=== PATIENT | female | born 1955 | race Caucasian/White ===

== ENCOUNTER 2023-07-31 09:27 | Inpatient (IN) ==
[2023-07-31] MEDS ORDERED: ONDANSETRON INJ 2 MG/ML 2 ML VIAL IV STA (09:59)
[2023-07-31] MEDS ORDERED: MoRPHine SULFATE 4 MG/ML 1 ML CARP\\VIAL IV STA ×2 (09:59→12:11)
[2023-07-31] MEDS ORDERED: SODIUM CHLORIDE 0.9% 500 ML IV STA (09:59)
--- NOTE | 2023-07-31 10:02 | Emergency Department Note ---
Impression & Plan Osteoarthritis ADMIT ED Provider Note HPI: History obtained from patient. The patient is a 68-year-old female who presents emergency department with acute on chronic right hip pain. Patient states she has a history of osteoarthritis, she is currently in the midst of an outpatient evaluation with Dr. Singh of orthopedics to determine whether or not she should have her hip replaced. Patient states that she actually had an upcoming appointment today with orthopedics however she developed acute worsening of her pain since this past Saturday. Patient denies any traumatic injuries but states that she is getting to the point where she is having difficulty ambulating and almost fell today getting out of the shower because of the pain in her right hip. Patient states at times the pain radiates down her right leg. She is now having pain even at rest without moving the hip. On arrival here to the ED the patient is hypertensive at 144/90 but otherwise hemodynamically stable, she is in no acute distress on my initial assessment. ROS: - Per HPI Differential Diagnosis: Right hip fracture, end-stage osteoarthritis of the right hip, right hip dislocation, amongst other potential pathologies. *Outpatient medications and allergy history reviewed. *Pertinent external medical records reviewed PE: General: Alert HEENT: Normocephalic, trachea midline Eyes: Extraocular eye movement is intact, no scleral erythema Pulmonary: Clear to auscultation bilaterally, no wheezing Cardio: Regular rate and rhythm GI: Abdomen is soft to palpation : No suprapubic tenderness MSK: No evidence of trauma or malformation of the extremities, no edema, there is a palpable dorsalis pedis pulse in the right lower extremity, there is limited flexion at the right hip secondary to pain Skin: No evidence of rash Neuro: Alert, no focal deficits Psychiatric: Cooperative Interventions provided in ED: -IV morphine, IV Zofran, IV fluid bolus Medical Decision Making: Patient presented to the emergency department with acutely worsening right hip pain in the setting of chronic right hip pain secondary to osteoarthritis. Patient was scheduled to see Dr. Singh of orthopedics for this issue today. IV was established and lab work obtained here in the ED, patient was given IV morphine for pain. Lab work is largely unremarkable, x-ray imaging of the right hip shows evidence of severe osteoarthritis without acute fracture. On reassessment patient states her pain is improved but she does not want to go home secondary to ambulatory dysfunction and pain. I did discuss the patient's presentation with Dr. Singh, he states that he was going to evaluate the patient for elective repair/replacement of her right hip but given her acute symptom worsening he would be in agreement to admit the patient for definitive care/operative intervention. I did initially discuss the case with the on-call hospitalist, Dr. Alicia, and following his discussion with orthopedics the orthopedic service will admit the patient primarily. Patient is in agreement to this plan and the patient was admitted in stable condition. Consultants/Discussions held with other healthcare providers: -Orthopedics, Dr. Singh Disposition discussion held by myself with: -Patient and family member at bedside Diagnosis: 1. Right hip pain, acute on chronic 2. Osteoarthritis of the right hip, severe 3. Ambulatory dysfunction, acute Disposition: Admission Rene Mak DO Emergency Medicine Past Med/Surg History Medical History Anxiety GERD (gastroesophageal reflux disease) History of breast cancer ~2009; surgical intervention with radiation. History of COVID-19 Spring 2021 - suspected at the time. patient then developed mono and ebstein dobbs virus. prolonged fatigue, weakness, cough for several months. no current issues Hyperlipidemia Osteopenia Vulvar intraepithelial neoplasia (LORA) grade 3 ~ - surgery only. Surgical History H/O foot surgery plantar fasciitis repair History of appendectomy History of bilateral tubal ligation History of x2 History of carpal tunnel release right History of cataract surgery History of colonoscopy History of esophagogastroduodenoscopy (EGD) History of total knee replacement right S/P breast lumpectomy Left x2 (benign x1; left breast cancer diagnosed ~2009) with lymph node removal Right x1 (benign) S/P epidural steroid injection S/P lumbar fusion Status post surgery removal of the cancer from vulva Family History Father No problems noted. Aunt Breast cancer paternal Family/Other Breast cancer maternal cousins Brother Lung cancer Sister Lung cancer Uncle Lung cancer maternal x 3 Aunt Lung cancer maternal Other Diabetes No family history of adverse response to anesthesia Denies family history of Ovarian cancer Prostate cancer Myocardial infarction Colorectal cancer Social History Smoking Status: Former smoker Second Hand Exposure: No; Do You Dip or Chew Tobacco: No; Hx Alcohol Use: Yes Alcohol type: wine Hx Substance Use: No Preferred Language: Slovak Communication Ability: Effective Boiler Technician Required: No Beliefs That Will Affect Care: None marital status: Single marital status details: daughter and 2 small children live with her Current Living Situation: Family Current Living Situation Comment: lives with daughter and grandchildren current occupational status: employed Feels Safe at Home: Yes Diet: regular caffeine: Yes Physical Activity Frequency: 1-2 Times per Week Seatbelt Use: always Assistive Devices: Cane and Glasses Allergies Allergies Allergy/AdvReac Type Severity Reaction Status Date / Time amoxicillin [From Augmentin] Allergy Intermediate Hives Verified 07/31/23 12:03 clavulanic acid Allergy Intermediate Hives Verified 07/31/23 12:03 [From Augmentin] naproxen Allergy Intermediate Rash Verified 07/31/23 12:03 Penicillins Allergy Intermediate Hives Verified 07/31/23 12:03 hydromorphone [From Dilaudid] Allergy Unknown Unknown Verified 07/31/23 12:03 Home Meds Home Medications Medication Instructions Recorded Confirmed acidophilus 100 million 1 cap PO HS 06/25/23 07/31/23 cell-pectin, citrus 10 mg capsule atorvastatin 20 mg tablet 20 mg PO HS 06/25/23 07/31/23 azelastine 137 mcg (0.1 %) nasal 2 spray intranasal DAILY 06/25/23 07/31/23 spray aerosol bimatoprost 0.01 % eye drops 1 drp ophthalmic (eye) DAILY 06/25/23 07/31/23 (Yong) calcium 167 mg-vitamin D3 1.67 1 cap PO HS 06/25/23 07/31/23 mcg-magnesium 83 mg capsule ipratropium bromide 21 mcg (0.03 2 spray intranasal DAILY 06/25/23 07/31/23 %) nasal spray latanoprost 0.005 % eye drops 1 drp ophthalmic (eye) HS 06/25/23 07/31/23 [id number] 8 mg-folic 400 1 tab PO QAM 06/25/23 07/31/23 mcg-K 50 mcg-lutein 300 mcg tablet (Centrum Silver Women) omeprazole 20 mg capsule,delayed 20 mg PO DAILY PRN Acid Reflux 06/25/23 07/31/23 release paroxetine HCl 10 mg tablet 10 mg PO QAM 06/25/23 07/31/23 vit C 250 mg-vit E 90 mg-zinc 40 1 tab PO BID 06/25/23 07/31/23 mg-copper 1 [id number]-hatrzl capsule (PreserVision AREDS-2) cholecalciferol (vitamin D3) 125 125 mcg PO DAILY 07/31/23 07/31/23 mcg (5,000 unit) tablet (Vitamin D3) ketorolac 0.5 % eye drops 1 drp OPB QID 07/31/23 07/31/23 prednisolone acetate 1 % eye 1 drp OPR DAILY 07/31/23 07/31/23 drops,suspension Previous Rx's Medication Instructions Recorded methocarbamol 750 mg tablet 750 mg PO TID PRN muscle spasm #30 06/28/23 tabs meloxicam 15 mg tablet 15 mg PO QAM PRN Pain #90 tabs 07/25/23 Results & Data (ED) Vital Signs Vital Signs - 24 hr 07/31/23 09:31 07/31/23 10:20 07/31/23 10:20 Temperature 36.6 C 36.5 C Temperature Source Temporal Artery Scan Oral Pulse Rate 91 H 88 Pulse Rate [Right Finger] 80 Pulse Rhythm Regular Pulse Rhythm [Right Finger] Regular Pulse Strength [Right Finger] Normal Respiratory Rate 17 18 16 Respiratory Effort / Characteristics Non-Labored Spontaneous Non-Labored Spontaneous Respiratory Depth Normal Normal Respiratory Pattern Regular Blood Pressure 144/90 H Blood Pressure [Right Arm] 168/90 H Blood Pressure Mean 108 Blood Pressure Mean [Right Arm] 116 Blood Pressure Position Sitting Blood Pressure Position [Right Arm] Semi-fowlers Pulse Oximetry 98 98 98 Oxygen Delivery Method Room Air Room Air Room Air Sepsis Recent Fever Within 48 Hours No Sepsis New/Unexplained Change in Mental Status No Sepsis Action Taken by Nursing No Action Required 07/31/23 12:21 07/31/23 14:00 Temperature 36.5 C 36.5 C Temperature Source Oral Oral Pulse Rate Pulse Rate [Right Finger] 80 80 Pulse Rhythm Pulse Rhythm [Right Finger] Regular Regular Pulse Strength [Right Finger] Normal Normal Respiratory Rate 16 16 Respiratory Effort / Characteristics Non-Labored Spontaneous Non-Labored Spontaneous Respiratory Depth Normal Normal Respiratory Pattern Regular Regular Blood Pressure Blood Pressure [Right Arm] 169/92 H 152/85 H Blood Pressure Mean Blood Pressure Mean [Right Arm] 117 107 Blood Pressure Position Blood Pressure Position [Right Arm] Semi-fowlers Semi-fowlers Pulse Oximetry 98 98 Oxygen Delivery Method Room Air Room Air Sepsis Recent Fever Within 48 Hours Sepsis New/Unexplained Change in Mental Status Sepsis Action Taken by Nursing Laboratory Data 07/31/23 10:25 07/31/23 10:25 Lab Results 07/31/23 Range/Units 10:25 WBC 8.35 (4.8-10.8) K/ul RBC 4.40 (4.20-5.40) M/uL Hgb 14.0 (12.0-16.0) g/dl Hct 40.9 (37.0-47.0) % MCV 93.0 (80.0-100.0) fL MCH 31.8 (25.0-34.0) pg MCHC 34.2 (32.0-36.0) g/dL RDW Std Deviation 45.7 (36.4-46.3) fL RDW Coeff of Edilberto 13.4 (11.5-14.5) % Plt Count 323 (130-400) K/uL MPV 8.7 L (9.4-12.4) fL Immature Gran % (Auto) 0.4 % Neut % (Auto) 67.3 % Lymph % (Auto) 23.0 % [place] % (Auto) 7.8 % Eos % (Auto) 1.0 % Baso % (Auto) 0.5 % Neut # (Auto) 5.63 (1.40-6.50) K/uL Lymph # (Auto) 1.92 (1.20-3.40) K/uL [place] # (Auto) 0.65 H (0.11-0.59) K/uL Eos # (Auto) 0.08 (0.00-0.50) K/uL Baso # (Auto) 0.04 (0.00-0.20) K/uL Immature Gran # (Auto) 0.03 (0.01-0.20) K/uL PT 10.2 (9.0-12.0) Seconds INR 0.9 (0.9-1.1) Sodium 135 L (136-145) mmol/L Potassium 4.1 (3.5-5.1) mmol/L Chloride 99 (98-107) mmol/L Carbon Dioxide 27 (21-32) mmol/L Anion Gap 9 (3-11) BUN 16 (6-23) mg/dl Creatinine 0.80 (0.6-1.2) mg/dl Est Cr Clr Drug Dosing 62.8 ml/min Est GFR ( Amer) 89.0 ml/min Est GFR (Non-Af Amer) 76.8 ml/min BUN/Creatinine Ratio 20.0 (10-20) Glucose 90 (70-99(Fasting)) mg/dl Calcium 10.4 H (8.6-10.3) mg/dl Total Bilirubin 0.6 (0.2-1.0) mg/dl AST 22 (13-39) U/L ALT 24 (7-52) U/L Alkaline Phosphatase 121 H (34-104) U/L Total Protein 7.8 (6.0-8.3) gm/dl Albumin 4.8 (3.4-5.0) gm/dl Globulin 3.0 (2.5-4.0) gm/dl Albumin/Globulin Ratio 1.6 (0.9-2) Administered Medications Discontinued Medications Sodium Chloride (Nss) 500 mls @ 999 mls/hr IV .Q31M STA Stop: 07/31/23 10:29 Last Infusion: 07/31/23 11:52 Dose: Infused Documented By: Admin: 07/31/23 10:26 Dose: 999 mls/hr Documented By: ALFREDO Morphine Sulfate (Morphine Sulfate 4 Mg/Ml 1 Ml Carp\Vial) 4 mg IV NOW STA Stop: 07/31/23 10:00 Last Admin: 07/31/23 10:26 Dose: 4 mg Documented By: ALFREDO Morphine Sulfate (Morphine Sulfate 4 Mg/Ml 1 Ml Carp\Vial) 4 mg IV NOW STA Stop: 07/31/23 12:12 Last Admin: 07/31/23 12:19 Dose: 4 mg Documented By: RICHARW Ondansetron HCl (Ondansetron Inj 2 Mg/Ml 2 Ml Vial) 4 mg IV NOW STA Stop: 07/31/23 10:00 Last Admin: 07/31/23 10:26 Dose: 4 mg Documented By: ALFREDO Imaging Data Radiologist's Impression: Hip X-Ray 07/31/23 09:55 XR hip RT min 2V HISTORY: 68 years-old Female pain, hx OA, no trauma chronic right-sided hip pain COMPARISON: Hip radiographs 05/24/2022, lumbar spine radiographs 06/27/2023. TECHNIQUE: 2 views of the right hip FINDINGS: Severe joint space narrowing of the right femoral acetabular joint is again noted with superior articular collapse and articular flattening. Chronic remodeling changes with sclerosis. Demineralized appearance of the bones. Moderate degeneration of the pubic symphysis. Pelvic basin calcifications are likely vascular. Chronic degenerative and postoperative changes of the lumbar spine again noted. IMPRESSION: 1. Severe joint space narrowing of the right femoral acetabular joint with femoral head articular collapse, flattening and sclerosis which is new/significantly progressed compared to 05/24/2022. 2. No acute fracture identified. ACT 112: Negative or not required by law. The above report was generated using voice recognition software. It may contain grammatical, syntax or spelling errors. Electronically signed by: Geoff Moreno M.D. 07/31/2023 11:52 AM Discharge Plan Visit Data Chief Complaint: Hip Pain Stated Complaint: R HIP PAIN, ED Provider: Rene Mak Discharge Problem: Osteoarthritis Forms Stand Alone Forms: [employer] Prescriptions Prescriptions: No Action methocarbamol 750 mg tablet 750 mg PO TID PRN (Reason: muscle spasm) Qty: 30 1RF meloxicam 15 mg tablet 15 mg PO QAM PRN (Reason: Pain) Qty: 90 3RF ketorolac 0.5 % drops 1 drp OPB QID prednisolone acetate 1 % drops,suspension 1 drp OPR DAILY cholecalciferol (vitamin D3) [Vitamin D3] 125 mcg (5,000 unit) Tablet 125 mcg PO DAILY paroxetine HCl 10 mg tablet 10 mg PO QAM atorvastatin 20 mg tablet 20 mg PO HS azelastine 137 mcg (0.1 %) aerosol,spray 2 spray intranasal DAILY ipratropium bromide 21 mcg (0.03 %) spray,non-aerosol 2 spray intranasal DAILY Rx Instructions: administer into each nostril Centrum Silver Women 8 mg iron-400 mcg-50 mcg Tablet 1 tab PO QAM acidophilus-pectin, citrus 100 million cell-10 mg Capsule 1 cap PO HS PreserVision AREDS-2 250-90-40-1 mg Capsule 1 tab PO BID calcium 26-vit D3-magnesium 15 167 mg calcium- 1.67 mcg-83 mg Capsule 1 cap PO HS omeprazole 20 mg Capsule,Delayed Release(Dr/Ec) 20 mg PO DAILY PRN (Reason: Acid Reflux) latanoprost 0.005 % Drops 1 drp OPHTHALMIC (EYE) HS Lumigan 0.01 % Drops 1 drp OPHTHALMIC (EYE) DAILY Referrals Referrals: Dea Reesndez MD [Primary Care Provider] - Discharge Problem: Osteoarthritis Qualifiers: Osteoarthritis location: hip Osteoarthritis type: unspecified Laterality: right Qualified Code(s): M16.11 - Unilateral primary osteoarthritis, right hip
[2023-07-31 10:46] LABS: Basophils # (auto) 0.04 K/uL (0.00-0.20); Basophils % (auto) 0.5 %; Eosinophils # (auto) 0.08 K/uL (0.00-0.50); Hematocrit (blood only) 40.9 % (37.0-47.0); Immature Granulocytes # (auto) 0.03 K/uL (0.01-0.20); Immature Granulocytes % (auto) 0.4 %; Lymphocytes # (auto) 1.92 K/uL (1.20-3.40); Mean Corpuscular Hemoglobin 31.8 pg (25.0-34.0); Mean Corpuscular Hgb Conc 34.2 g/dL (32.0-36.0); Mean Platelet Volume 8.7 fL (9.4-12.4); Monocytes # (auto) 0.65 K/uL (0.11-0.59); Monocytes % (auto) 7.8 %; Neutrophils # (auto) 5.63 K/uL (1.40-6.50); Neutrophils % (auto) 67.3 %; Platelet Count 323 K/uL (130-400); RDW Coefficient of Variation 13.4 % (11.5-14.5); RDW Standard Deviation 45.7 fL (36.4-46.3); White Blood Count 8.35 K/ul (4.8-10.8)
[2023-07-31 11:03] LABS: Albumin Level 4.8 gm/dl (3.4-5.0); Bilirubin,Total 0.6 mg/dl (0.2-1.0); Calcium 10.4 mg/dl (8.6-10.3); Potassium 4.1 mmol/L (3.5-5.1)
[2023-07-31 11:09] LABS: Albumin Globulin Ratio 1.6 (0.9-2); Creatinine Clr Calc Pharmacy 62.8 ml/min; Est GFR (Non-African American) 76.8 ml/min; INR 0.9 (0.9-1.1); Prothrombin Time 10.2 Seconds (9.0-12.0); Total Protein 7.8 gm/dl (6.0-8.3)
--- NOTE | 2023-07-31 11:54 | XRay Report ---
XR hip RT min 2V HISTORY: 68 years-old Female pain, hx OA, no trauma chronic right-sided hip pain COMPARISON: Hip radiographs 05/24/2022, lumbar spine radiographs 06/27/2023. TECHNIQUE: 2 views of the right hip FINDINGS: Severe joint space narrowing of the right femoral acetabular joint is again noted with superior artic ular collapse and articular flattening. Chronic remodeling changes with sclerosis. Demineralized appe arance of the bones. Moderate degeneration of the pubic symphysis. Pelvic basin calcifications are li jackson vascular. Chronic degenerative and postoperative changes of the lumbar spine again noted. IMPRESSION: 1. Severe joint space narrowing of the right femoral acetabular joint with femoral head articular col lapse, flattening and sclerosis which is new/significantly progressed compared to 05/24/2022. 2. No acute fracture identified. ACT 112: Negative or not required by law. The above report was generated using voice recognition software. It may contain grammatical, syntax o r spelling errors. Electronically signed by: Geoff Moreno M.D. 07/31/2023 11:52 AM
--- NOTE | 2023-07-31 13:59 | History & Physical Report ---
Date of Service July 31, 2023 Assessment & Plan (1) Osteoarthritis of right hip: At this point, the patient is a good candidate for total hip arthroplasty. Patient was discussed with Dr. Singh in which he would like to proceed with anterior total hip arthroplasty on Saturday. We will admit the patient for pain control until we can operate on Saturday. The risk, benefits, and alternatives to right total hip arthroplasty was discussed and is entirely with the patient. She verbalized understanding and wishes to proceed with total hip arthroplasty to the right hip. Postoperative expectations were discussed with the patient its entirety. All questions were answered to the patient's satisfaction. She will be n.p.o. after midnight on for the anticipated surgical intervention on Saturday. History of Present Illness Chief Complaint: . Right Hip Pain Primary Care Provider: Dea Resendez MD . Amee is a 68-year-old female who presented to the emergency department today for right hip pain. She is a known patient of Dr. 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 She noted that today, she was stepping out of the shower when she felt a"popping" sensation to the right hip. She was at severe 10 out of 10 pain at that point and she feared that she may have fractured her hip. She then reported to the emergency department where an x-ray was completed which showed no acute fractures. At this time, she notes that her pain is a constant 6 out of 10 but is a 10 out of 10 with ambulation. At this point, she has a lot of difficulty with ambulation. She denies any low back pain, distal extremity pain, numbness/tingling, or paresthesias. She is not on any anticoagulation. Allergies Allergy/AdvReac Type Severity Reaction Status Date / Time amoxicillin [From Augmentin] Allergy Intermediate Hives Verified 07/31/23 12:03 clavulanic acid Allergy Intermediate Hives Verified 07/31/23 12:03 [From Augmentin] naproxen Allergy Intermediate Rash Verified 07/31/23 12:03 Penicillins Allergy Intermediate Hives Verified 07/31/23 12:03 hydromorphone [From Dilaudid] Allergy Unknown Unknown Verified 07/31/23 12:03 Home Medications Medication Instructions Recorded Confirmed Type acidophilus 100 million 1 cap PO HS 06/25/23 07/31/23 History cell-pectin, citrus 10 mg capsule atorvastatin 20 mg tablet 20 mg PO HS 06/25/23 07/31/23 History azelastine 137 mcg (0.1 %) nasal 2 spray intranasal DAILY 06/25/23 07/31/23 History spray aerosol bimatoprost 0.01 % eye drops 1 drp ophthalmic (eye) DAILY 06/25/23 07/31/23 History (Lumigan) calcium 167 mg-vitamin D3 1.67 1 cap PO HS 06/25/23 07/31/23 History mcg-magnesium 83 mg capsule ipratropium bromide 21 mcg (0.03 2 spray intranasal DAILY 06/25/23 07/31/23 History %) nasal spray latanoprost 0.005 % eye drops 1 drp ophthalmic (eye) HS 06/25/23 07/31/23 History basarroa-kgxv-ynxu 8 mg-folic 400 1 tab PO QAM 06/25/23 07/31/23 History mcg-K 50 mcg-lutein 300 mcg tablet (Centrum Silver Women) omeprazole 20 mg capsule,delayed 20 mg PO DAILY PRN Acid Reflux 06/25/23 07/31/23 History release paroxetine HCl 10 mg tablet 10 mg PO QAM 06/25/23 07/31/23 History vit C 250 mg-vit E 90 mg-zinc 40 1 tab PO BID 06/25/23 07/31/23 History mg-copper 1 ij-eycfgp-tiijax capsule (PreserVision AREDS-2) methocarbamol 750 mg tablet 750 mg PO TID PRN muscle spasm #30 06/28/23 07/31/23 Rx tabs meloxicam 15 mg tablet 15 mg PO QAM PRN Pain #90 tabs 07/25/23 07/31/23 Rx cholecalciferol (vitamin D3) 125 125 mcg PO DAILY 07/31/23 07/31/23 History mcg (5,000 unit) tablet (Vitamin D3) ketorolac 0.5 % eye drops 1 drp OPB QID 07/31/23 07/31/23 History prednisolone acetate 1 % eye 1 drp OPR DAILY 07/31/23 07/31/23 History drops,suspension Past Med/Surg History Medical History Anxiety GERD (gastroesophageal reflux disease) History of breast cancer ~2009; surgical intervention with radiation. History of COVID-19 Spring 2021 - suspected at the time. patient then developed mono and ebstein dobbs virus. prolonged fatigue, weakness, cough for several months. no current issues Hyperlipidemia Osteopenia Vulvar intraepithelial neoplasia (LORA) grade 3 ~ - surgery only. Surgical History H/O foot surgery plantar fasciitis repair History of appendectomy History of bilateral tubal ligation History of x2 History of carpal tunnel release right History of cataract surgery History of colonoscopy History of esophagogastroduodenoscopy (EGD) History of total knee replacement right S/P breast lumpectomy Left x2 (benign x1; left breast cancer diagnosed ~2009) with lymph node removal Right x1 (benign) S/P epidural steroid injection S/P lumbar fusion Status post surgery removal of the cancer from vulva Family History Father No problems noted. Aunt Breast cancer paternal Family/Other Breast cancer maternal cousins Brother Lung cancer Sister Lung cancer Uncle Lung cancer maternal x 3 Aunt Lung cancer maternal Other Diabetes No family history of adverse response to anesthesia Denies family history of Ovarian cancer Prostate cancer Myocardial infarction Colorectal cancer Social History Smoking Status: Former smoker Second Hand Exposure: No; Do You Dip or Chew Tobacco: No; Hx Alcohol Use: Yes Alcohol type: wine Hx Substance Use: No Preferred Language: Danish Communication Ability: Effective Home Health Billing Specialist Required: No Beliefs That Will Affect Care: None marital status: Single marital status details: daughter and 2 small children live with her Current Living Situation: Family Current Living Situation Comment: lives with daughter and grandchildren current occupational status: employed Other Information That Helps Us Care for You: No Feels Safe at Home: Yes Safety Concerns: Feels Safe At This Time Diet: regular caffeine: Yes Physical Activity Frequency: 1-2 Times per Week Seatbelt Use: always Assistive Devices: Walker Review of Systems All systems reviewed & are unremarkable except as noted in HPI & below. Physical Exam . Constitutional WD/WN, vitals as above no acute distress Eyes PERRL, conjunctivae normal, anicteric sclerae Neck trachea midline, no thyromegaly Respiratory normal respiratory effort, lungs clear to auscultation Cardiovascular RRR, no murmur, no edema Vessels: normal carotid upstroke; no carotid bruit Gastrointestinal (Abdomen) normal bowel sounds, soft, nontender, no hepatosplenomegaly Skin no rashes, warm and dry Neurologic CN's II-XI intact bilaterally and moves all extremities Psychiatric A+Ox3, euthymic affect Musculoskeletal Focused exam of the right lower extremity reveals no erythema, ecchymosis, edema, or other obvious deformities. Slight tenderness throughout the right hip joint. Limited range of motion and strength in all planes of the right hip due to subjective discomfort. Positive logroll. Normal range of motion at the knee, ankle, and all 5 toes. Calf soft nontender to palpation. Negative Homans' sign. +2 DP and PT pulses. Less than 2-second capillary refill. Normal sensation. Neurovascular intact. Results & Data Results & Data Laboratory Results . Diagnostic Findings . Laboratory Results - last 24 hr 07/31/23 10:25 WBC 8.35 RBC 4.40 Hgb 14.0 Hct 40.9 MCV 93.0 MCH 31.8 MCHC 34.2 RDW Std Deviation 45.7 RDW Coeff of Edilberto 13.4 Plt Count 323 MPV 8.7 L Immature Gran % (Auto) 0.4 Neut % (Auto) 67.3 Lymph % (Auto) 23.0 [place] % (Auto) 7.8 Eos % (Auto) 1.0 Baso % (Auto) 0.5 Neut # (Auto) 5.63 Lymph # (Auto) 1.92 [place] # (Auto) 0.65 H Eos # (Auto) 0.08 Baso # (Auto) 0.04 Immature Gran # (Auto) 0.03 PT 10.2 INR 0.9 Sodium 135 L Potassium 4.1 Chloride 99 Carbon Dioxide 27 Anion Gap 9 BUN 16 Creatinine 0.80 Est Cr Clr Drug Dosing 62.8 Est GFR ( Amer) 89.0 Est GFR (Non-Af Amer) 76.8 BUN/Creatinine Ratio 20.0 Glucose 90 Calcium 10.4 H Total Bilirubin 0.6 AST 22 ALT 24 Alkaline Phosphatase 121 H Total Protein 7.8 Albumin 4.8 Globulin 3.0 Albumin/Globulin Ratio 1.6 Hip X-Ray 07/31/23 09:55 XR hip RT min 2V HISTORY: 68 years-old Female pain, hx OA, no trauma chronic right-sided hip pain COMPARISON: Hip radiographs 05/24/2022, lumbar spine radiographs 06/27/2023. TECHNIQUE: 2 views of the right hip FINDINGS: Severe joint space narrowing of the right femoral acetabular joint is again noted with superior articular collapse and articular flattening. Chronic remodeling changes with sclerosis. Demineralized appearance of the bones. Moderate degeneration of the pubic symphysis. Pelvic basin calcifications are likely vascular. Chronic degenerative and postoperative changes of the lumbar spine again noted. IMPRESSION: 1. Severe joint space narrowing of the right femoral acetabular joint with femoral head articular collapse, flattening and sclerosis which is new/significantly progressed compared to 05/24/2022. 2. No acute fracture identified. ACT 112: Negative or not required by law. The above report was generated using voice recognition software. It may contain grammatical, syntax or spelling errors. Electronically signed by: Geoff Moreno M.D. 07/31/2023 11:52 AM PG Care Time/CCT Total # of Minutes Spent Total Time Spent with Patient: Total time spent is greater than 50% in coordination of care (as documented) at patient's floor/unit and/or counseling patient: Coding Level of Care Code 44733 INT INP/OBS CARE 2/55MIN Diagnoses Primary osteoarthritis of right hip M16.11 Osteoarthritis type: primary (1) Osteoarthritis of right hip Osteoarthritis type: primary Qualified Code(s): M16.11 - Unilateral primary osteoarthritis, right hip
[2023-07-31] MEDS ORDERED: HYDROmorphone INJ 0.5 MG/0.5 ML SYR IV PRN (15:56)
[2023-07-31] MEDS ORDERED: PANTOprazole 40 MG TAB PO PRN (15:56)
[2023-07-31] MEDS: oxyCODONE/ACETAMINOPHEN 5mg/325mg TAB PO PRN ×2 (16:28→20:41)
[2023-07-31 16:42] LABS: Basophils # (auto) 0.04 K/uL (0.00-0.20); Basophils % (auto) 0.5 %; Eosinophils # (auto) 0.06 K/uL (0.00-0.50); Eosinophils % (auto) 0.7 %; Hematocrit (blood only) 37.7 % (37.0-47.0); Hemoglobin 12.6 g/dl (12.0-16.0); Immature Granulocytes # (auto) 0.01 K/uL (0.01-0.20); Immature Granulocytes % (auto) 0.1 %; Lymphocytes # (auto) 2.55 K/uL (1.20-3.40); Lymphocytes % (auto) 29.8 %; Mean Corpuscular Hemoglobin 31.5 pg (25.0-34.0); Mean Corpuscular Hgb Conc 33.4 g/dL (32.0-36.0); Mean Corpuscular Volume 94.3 fL (80.0-100.0); Mean Platelet Volume 8.8 fL (9.4-12.4); Monocytes # (auto) 0.88 K/uL (0.11-0.59); Monocytes % (auto) 10.3 %; Neutrophils # (auto) 5.01 K/uL (1.40-6.50); Neutrophils % (auto) 58.6 %; Platelet Count 291 K/uL (130-400); RDW Coefficient of Variation 13.5 % (11.5-14.5); RDW Standard Deviation 47.2 fL (36.4-46.3); White Blood Count 8.55 K/ul (4.8-10.8)
[2023-07-31 16:57] LABS: Albumin Level 3.9 gm/dl (3.4-5.0); Bilirubin,Total 0.4 mg/dl (0.2-1.0); Calcium 9.3 mg/dl (8.6-10.3); Potassium 4.1 mmol/L (3.5-5.1)
[2023-07-31 17:03] LABS: Albumin Globulin Ratio 1.4 (0.9-2); BUN Creatinine Ratio 15.8 (10-20); Creatinine Clr Calc Pharmacy 49.7 ml/min; Est GFR (African American) 67.2 ml/min; Globulin 2.7 gm/dl (2.5-4.0); Total Protein 6.6 gm/dl (6.0-8.3)
--- NOTE | 2023-07-31 18:09 | XRay Report ---
XR chest 2V PA/lateral CLINICAL HISTORY: PREOP TECHNIQUE: 2 views of the chest were obtained. Comparison: Comparison is made to chest radiograph 03/01/2023 FINDINGS: No lines and tubes are seen. Calcified aortic knob is seen. The lungs are clear. No evidence of pleur al effusion or pneumothorax. IMPRESSION: No acute chest disease. ACT 112: Negative or not required by law. Electronically signed by: Andrea Candelario M.D. 07/31/2023 6:07 PM
[2023-07-31] MEDS: ATORVASTATIN 20 MG TAB PO SCH (20:41)
[2023-08-01] MEDS: oxyCODONE/ACETAMINOPHEN 5mg/325mg TAB PO PRN ×4 (02:42→20:49)
[2023-08-01] MEDS ORDERED: 600mg Preop IV SCH (06:00)
[2023-08-01] MEDS ORDERED: CLINDAMYCIN/D5W 900 MG/50 ML BAG IV SCH ×2 (06:00)
[2023-08-01] MEDS ORDERED: 300mg Preop IV SCH (06:00)
--- NOTE | 2023-08-01 07:40 | Electrocardiogram Report ---
Test Reason : Blood Pressure : / mmHG Vent. Rate : 075 BPM Atrial Rate : 075 BPM P-R Int : 126 ms QRS Dur : 076 ms QT Int : 368 ms P-R-T Axes : 024 000 037 degrees QTc Int : 410 ms Normal sinus rhythm Normal ECG No previous ECGs available Confirmed by Bowen Braxton ([id number]) on 08/01/2023 7:40:22 AM Referred By: REFERRED SELF Confirmed By:Bowen Braxton
--- NOTE | 2023-08-01 08:05 | Orthopedic Progress Note ---
Date of Service August 01, 2023 Assessment & Plan (1) Osteoarthritis: She is set for anterior right hip BRENNA[place] with Dr. Singh tomorrow. Postoperative expectations were discussed yesterday in detail with no new questions today. She will be n.p.o. after midnight tonight for her anticipated surgery tomorrow. She may still be out of bed today with a regular diet. She had no concerns today. Dr. Singh: Amee was seen and examined by myself at bedside this afternoon. She is having a lot of pain in her right hip. X-rays show advanced osteoarthritis. I recommended a right anterior total of arthroplasty. I went over the risk, benefits, alternatives to procedure and we elected to proceed. Questions were answered at bedside. We will plan to proceed with surgery early tomorrow afternoon. Subjective . Amee was seen today resting comfortably in bed in no apparent distress. She is looking forward to her operation tomorrow. Pain has been well controlled since admission. She denies any concerns today. Review of Systems All systems reviewed & are unremarkable except as noted in HPI & below. Physical Exam . Focused exam of the right lower extremity reveals no erythema, ecchymosis, edema, or other obvious deformities. Slight tenderness throughout the right hip joint. Limited range of motion and strength in all planes of the right hip due to subjective discomfort. Positive logroll. Normal range of motion at the knee, ankle, and all 5 toes. Calf soft nontender to palpation. Negative Homans' sign. +2 DP and PT pulses. Less than 2-second capillary refill. Normal sensation. Neurovascular intact. Results & Data Results & Data Laboratory Results . Laboratory Results - last 24 hr 07/31/23 07/31/23 10:25 16:12 WBC 8.35 8.55 RBC 4.40 4.00 L Hgb 14.0 12.6 Hct 40.9 37.7 MCV 93.0 94.3 MCH 31.8 31.5 MCHC 34.2 33.4 RDW Std Deviation 45.7 47.2 H RDW Coeff of Edilberto 13.4 13.5 Plt Count 323 291 MPV 8.7 L 8.8 L Immature Gran % (Auto) 0.4 0.1 Neut % (Auto) 67.3 58.6 Lymph % (Auto) 23.0 29.8 [place] % (Auto) 7.8 10.3 Eos % (Auto) 1.0 0.7 Baso % (Auto) 0.5 0.5 Neut # (Auto) 5.63 5.01 Lymph # (Auto) 1.92 2.55 [place] # (Auto) 0.65 H 0.88 H Eos # (Auto) 0.08 0.06 Baso # (Auto) 0.04 0.04 Immature Gran # (Auto) 0.03 0.01 PT 10.2 INR 0.9 Sodium 135 L 139 Potassium 4.1 4.1 Chloride 99 108 H Carbon Dioxide 27 25 Anion Gap 9 6 BUN 16 16 Creatinine 0.80 1.01 Est Cr Clr Drug Dosing 62.8 49.7 Est GFR ( Amer) 89.0 67.2 Est GFR (Non-Af Amer) 76.8 58.0 BUN/Creatinine Ratio 20.0 15.8 Glucose 90 81 Calcium 10.4 H 9.3 Total Bilirubin 0.6 0.4 AST 22 18 ALT 24 18 Alkaline Phosphatase 121 H 99 Total Protein 7.8 6.6 Albumin 4.8 3.9 Globulin 3.0 2.7 Albumin/Globulin Ratio 1.6 1.4 Diagnostic Findings . Hip X-Ray 07/31/23 09:55 XR hip RT min 2V HISTORY: 68 years-old Female pain, hx OA, no trauma chronic right-sided hip pain COMPARISON: Hip radiographs 05/24/2022, lumbar spine radiographs 06/27/2023. TECHNIQUE: 2 views of the right hip FINDINGS: Severe joint space narrowing of the right femoral acetabular joint is again noted with superior articular collapse and articular flattening. Chronic remodeling changes with sclerosis. Demineralized appearance of the bones. Moderate degeneration of the pubic symphysis. Pelvic basin calcifications are likely vascular. Chronic degenerative and postoperative changes of the lumbar spine again noted. IMPRESSION: 1. Severe joint space narrowing of the right femoral acetabular joint with femoral head articular collapse, flattening and sclerosis which is new/significantly progressed compared to 05/24/2022. 2. No acute fracture identified. ACT 112: Negative or not required by law. The above report was generated using voice recognition software. It may contain grammatical, syntax or spelling errors. Electronically signed by: Geoff Moreno M.D. 07/31/2023 11:52 AM Chest X-Ray 07/31/23 15:56 XR chest 2V PA/lateral CLINICAL HISTORY: PREOP TECHNIQUE: 2 views of the chest were obtained. Comparison: Comparison is made to chest radiograph 03/01/2023 FINDINGS: No lines and tubes are seen. Calcified aortic knob is seen. The lungs are clear. No evidence of pleural effusion or pneumothorax. IMPRESSION: No acute chest disease. ACT 112: Negative or not required by law. Electronically signed by: Andrea Candelario M.D. 07/31/2023 6:07 PM PG Care Time/CCT Total # of Minutes Spent Total Time Spent with Patient: Total time spent is greater than 50% in coordination of care (as documented) at patient's floor/unit and/or counseling patient: Coding Level of Care Code 46824 SUB INP/OBS CARE 2MIN Diagnoses Osteoarthritis M16.11 Laterality: right Osteoarthritis location: hip Osteoarthritis type: unspecified (1) Osteoarthritis Laterality: right Osteoarthritis location: hip Osteoarthritis type: unspecified Qualified Code(s): M16.11 - Unilateral primary osteoarthritis, right hip
[2023-08-01] MEDS: PARoxetine HCL 10 MG TAB PO SCH (08:26)
[2023-08-01] MEDS: ATORVASTATIN 20 MG TAB PO SCH (20:18)
[2023-08-02] MEDS: oxyCODONE/ACETAMINOPHEN 5mg/325mg TAB PO PRN ×2 (01:45→07:24)
[2023-08-02] MEDS ORDERED: CLINDAMYCIN/D5W 900 MG/50 ML BAG IV SCH (06:00)
[2023-08-02] MEDS ORDERED: ORTHO JOINT MIX INFIL SCH (06:00)
[2023-08-02] MEDS: PARoxetine HCL 10 MG TAB PO SCH (07:25)
[2023-08-02] MEDS ORDERED: BUPIVACAINE 0.5 % 5 MG/1 ML PF 10ML VIAL ONE (07:26)
--- NOTE | 2023-08-02 09:17 | Anesthesiology Consultation ---
Date of Service August 02, 2023 Assessment & Plan Chart Review Chart Review: entry level marketing assistant initiated History Surgery Operation Date: 08/02/23 12:00 Proposed Procedures p Right Anterior Total Hip Arthroplasty - Maurisio Singh DO Height/Weight Height: 5 ft 3 in Weight: 65.1 kg Allergies Allergy/AdvReac Type Severity Reaction Status Date / Time amoxicillin [From Augmentin] Allergy Intermediate Hives Verified 07/31/23 12:03 clavulanic acid Allergy Intermediate Hives Verified 07/31/23 12:03 [From Augmentin] naproxen Allergy Intermediate Rash Verified 07/31/23 12:03 Penicillins Allergy Intermediate Hives Verified 07/31/23 12:03 hydromorphone [From Dilaudid] Allergy Unknown Unknown Verified 07/31/23 12:03 Medications Home Medications Medication Instructions Recorded Confirmed Last Taken acidophilus 100 million 1 cap PO HS 06/25/23 07/31/23 07/30/23 cell-pectin, citrus 10 mg capsule atorvastatin 20 mg tablet 20 mg PO HS 06/25/23 07/31/23 07/30/23 azelastine 137 mcg (0.1 %) nasal 2 spray intranasal DAILY 06/25/23 07/31/23 07/31/23 spray aerosol bimatoprost 0.01 % eye drops 1 drp ophthalmic (eye) DAILY 06/25/23 07/31/23 07/31/23 (Lumigan) calcium 167 mg-vitamin D3 1.67 1 cap PO HS 06/25/23 07/31/23 07/30/23 mcg-magnesium 83 mg capsule ipratropium bromide 21 mcg (0.03 2 spray intranasal DAILY 06/25/23 07/31/23 07/31/23 %) nasal spray latanoprost 0.005 % eye drops 1 drp ophthalmic (eye) HS 06/25/23 07/31/23 07/30/23 dlmfdhbc-cgzc-kqop 8 mg-folic 400 1 tab PO QAM 06/25/23 07/31/23 07/31/23 mcg-K 50 mcg-lutein 300 mcg tablet (Centrum Silver Women) omeprazole 20 mg capsule,delayed 20 mg PO DAILY PRN Acid Reflux 06/25/23 07/31/23 07/30/23 release paroxetine HCl 10 mg tablet 10 mg PO QAM 06/25/23 07/31/23 07/31/23 vit C 250 mg-vit E 90 mg-zinc 40 1 tab PO BID 06/25/23 07/31/23 07/31/23 mg-copper 1 [id number] capsule (PreserVision AREDS-2) methocarbamol 750 mg tablet 750 mg PO TID PRN muscle spasm #30 06/28/23 07/31/23 07/30/23 tabs meloxicam 15 mg tablet 15 mg PO QAM PRN Pain #90 tabs 07/25/23 07/31/23 07/31/23 cholecalciferol (vitamin D3) 125 125 mcg PO DAILY 07/31/23 07/31/23 07/31/23 mcg (5,000 unit) tablet (Vitamin D3) ketorolac 0.5 % eye drops 1 drp OPB QID 07/31/23 07/31/23 07/31/23 prednisolone acetate 1 % eye 1 drp OPR DAILY 07/31/23 07/31/23 07/31/23 drops,suspension Active Medications Generic Name Dose Route Start Last Admin Trade Name Freq PRN Reason Stop Dose Admin Atorvastatin Calcium 20 mg 07/31/23 21:00 08/01/23 20:18 Atorvastatin 20 Mg Tab PO 08/30/23 20:59 20 mg HS HENRRY Administration Oxycodone/Acetaminophen 1 - 2 tab 07/31/23 15:56 08/02/23 07:24 Oxycodone/Acetaminophen 5mg/325mg Tab PO 08/14/23 15:55 2 tab Q4H PRN Administration Pain Paroxetine HCl 10 mg 08/01/23 09:00 08/02/23 07:25 Paroxetine Hcl 10 Mg Tab PO 08/31/23 08:59 10 mg QAM HENRRY Administration NPO Date Last Intake of Fluids: 08/02/23 Time Last Intake of Fluids: 07:24 Last Intake of Fluids Comment: sips with meds Date Last Intake of Solids: 08/01/23 Time Last Intake of Solids: 23:59 Past Medical History Medical History History of COVID-19 Spring 2021 - suspected at the time. patient then developed mono and ebstein dobbs virus. prolonged fatigue, weakness, cough for several months. no current issues Hyperlipidemia Osteopenia Vulvar intraepithelial neoplasia (LORA) grade 3 ~ - surgery only. GERD (gastroesophageal reflux disease) Anxiety History of breast cancer ~2009; surgical intervention with radiation. Past Family History Family History Father No problems noted. Aunt Breast cancer paternal Family/Other Breast cancer maternal cousins Brother Lung cancer Sister Lung cancer Uncle Lung cancer maternal x 3 Aunt Lung cancer maternal Other Diabetes No family history of adverse response to anesthesia Denies family history of Ovarian cancer Prostate cancer Myocardial infarction Colorectal cancer Past Surgical History Surgical History History of cataract surgery History of colonoscopy History of esophagogastroduodenoscopy (EGD) History of carpal tunnel release right H/O foot surgery plantar fasciitis repair S/P epidural steroid injection S/P lumbar fusion Status post surgery removal of the cancer from vulva History of bilateral tubal ligation S/P breast lumpectomy Left x2 (benign x1; left breast cancer diagnosed ~2009) with lymph node removal Right x1 (benign) History of total knee replacement right History of x2 History of appendectomy Social History Smoking Status: Former smoker Do You Dip or Chew Tobacco: No Hx Alcohol Use: Yes Alcohol type: wine alcohol intake frequency: holidays/special occasions only Hx Substance Use: No substance use type: does not use Physical Exam Vital Signs Last Vital Signs Temp 98.2 F 08/02/23 07:46 Pulse 68 08/02/23 07:46 Resp 16 08/02/23 07:46 BP 121/75 08/02/23 07:46 Pulse Ox 95 08/02/23 07:46 O2 Del Method Room Air 08/02/23 07:46 Testing Laboratory Results 07/31/23 16:12 07/31/23 16:12 PT 10.2 Seconds (9.0-12.0) 07/31/23 10:25 INR 0.9 (0.9-1.1) 07/31/23 10:25 Blood Type O Positive 08/01/23 21:11 Antibody Screen NEGATIVE 08/01/23 21:11 Electrocardiogram Date: 07/31/23 Findings: + NSR @ (75 bpm) Chest X-Ray Date: 07/31/23 Findings: + NAD
[2023-08-02] MEDS ORDERED: MIDAZOLAM HCL 1 MG/ML 2ML VIAL ONE (10:45)
[2023-08-02] MEDS ORDERED: fentaNYL citrate PF 100 MCG/2 ML VIAL ONE (10:45)
--- NOTE | 2023-08-02 11:25 | History & Physical Bridge Note ---
Date of Service August 02, 2023 History & Physical Bridge Note I have examined the patient, reviewed the History & Physical and in the interval since the performance of the History & Physical I have noted the following changes of clinical significance: no changes noted
[2023-08-02] MEDS ORDERED: ONDANSETRON INJ 2 MG/ML 2 ML VIAL IV PRN ×2 (11:42→15:39)
[2023-08-02] MEDS ORDERED: ATROPINE SULFATE 0.1 MG/ML 10ML SYR IV PRN (11:42)
[2023-08-02] MEDS ORDERED: ePHEDrine sulfate 50 MG/ML AMP IV PRN (11:42)
[2023-08-02] MEDS ORDERED: fentaNYL citrate PF 100 MCG/2 ML VIAL IV PRN (11:42)
[2023-08-02] MEDS: LACTATED RINGER'S 1,000 ML IV SCH ×2 (11:56→15:40)
[2023-08-02] MEDS ORDERED: PROPOFOL IV EMULSION 10 MG/ML 20 ML VIAL IV ONE ×2 (12:19→12:58)
[2023-08-02] MEDS ORDERED: GLYCOPYRROLATE 0.2 MG/ML VIAL ONE (12:58)
[2023-08-02] MEDS ORDERED: ONDANSETRON INJ 2 MG/ML 2 ML VIAL ONE (12:58)
[2023-08-02] MEDS ORDERED: PHENYLEPHRINE HCL 10 MG/ML VIAL ONE (13:13)
[2023-08-02] MEDS ORDERED: ePHEDrine sulfate 50 MG/5 ML SYR ONE (13:13)
--- NOTE | 2023-08-02 14:15 | Operative Report ---
PG Post Operative Report Pre & Post Diagnosis Operation Date: 08/02/23 12:00 Pre-Op Diagnosis: Osteoarthritis Right Hip Post-Op Diagnosis: Osteoarthritis Right Hip I identified the patient and participated in the time-out.: Yes Procedure Operation Date: 08/02/23 12:00 Actual Procedures p Right Anterior Total Hip Arthroplasty(Right) - Maurisio Singh DO Surgeon Maurisio Singh DO Baling Press Operator Maurisio Hernandez PA-C Estimated Blood Loss 200 Findings Consistent with Post-Op Diagnosis Specimens Right femoral head Description of Procedure Implants used I used a ZimmerBiomet total hip arthroplasty system with a size 1 standard offset Avenir Complete stem, a 46 mm G7 cup with a 25mm screw, an E1 polyethylene liner, a 32 0 mm ceramic head with a 0 neck. Amee arrived at the hospital for the above procedure. She was seen in the preoperative holding area and the operative extremity was identified and signed. She was given a spinal anesthetic, a preoperative antibiotic, and TXA. She was then taken back to the operating room and laid on the table in the supine position. She was given basic sedation. The operative leg was secured to a Puristst leg positioner. The hip was then prepped and draped in sterile fashion. A timeout was done and the patient and the operative extremity was properly identified. An anterior approach was used. Dissection was taken down through the fascia and the tensor muscle belly was retracted laterally and the rectus was retracted medially. The circumflex vessels were identified and ligated. The capsule was then incised and tagged for later repair. The femoral neck was then cut and the femoral head was removed. The acetabulum was exposed. Time was spent doing a complete circumferential labral release. Sequential reaming of the acetabulum up to a size 45 reamer was done. Final reamings were done under fluoroscopy to ensure appropriate version. A Biomet 46 mm G7 cup was then impacted into place. A single 25 mm screw was placed. The E1 polyethylene liner was then snapped into place. Surrounding soft tissues were then injected with 100 cc of an orthopedic pain control cocktail. The proximal femur was then exposed. Sequential broaching up to a size 1 broach was done. Off that broach a size 32 head with a 0 neck was trialed. The hip was reduced and fluoroscopic images showed anatomic alignment of the implants in acceptable length. The broach was removed. The final size 1 standard offset Avenir Complete stem was then impacted into place. A ceramic 32 mm head with a 0 neck was then impacted onto the stem and the hip was reduced. Final fluoroscopic images showed anatomic alignment of the hip. The capsule was then closed with #1 Vicryl suture. A dilute betadyne lavage was then done for 3 minutes. The joint was then irrigated with normal saline solution. The fascia was closed with #1 PDS suture. Skin was closed with 2-0 Vicryl, mela, and a Silverlon dressing. She was then transferred to a hospital bed and taken to the post anesthesia care unit in stable condition. She tolerated the procedure well. Maurisio Hernandez PA-C, was present for the entire procedure. He was critical for patient positioning, prepping, draping, retraction exposure, wound closure and application of sterile dressing. I attest to the content of the Intraoperative Record and any orders documented therein. Any exceptions are noted below.
--- NOTE | 2023-08-02 15:13 | Anesthesiology Progress Note ---
Date of Service August 02, 2023 Anesthesia Post Procedure Vital Signs Vital Signs: Temp Pulse Pulse Resp BP Pulse Ox O2 Del Method 08/02/23 15:10 64 12 111/63 96 Room Air 08/02/23 15:00 66 12 99/66 L 95 Room Air 08/02/23 14:50 70 12 104/65 94 Room Air 08/02/23 14:40 70 12 118/67 99 Nasal Cannula 08/02/23 14:30 70 14 113/70 98 Nasal Cannula 08/02/23 14:20 36.1 C L 86 12 111/62 97 Nasal Cannula 08/02/23 11:41 36.9 C 70 20 130/75 95 Room Air 08/02/23 07:46 36.8 C 68 16 121/75 95 Room Air 08/01/23 22:38 36.8 C 83 18 146/79 H 95 Room Air O2 Flow Rate 08/02/23 15:10 08/02/23 15:00 08/02/23 14:50 08/02/23 14:40 3 08/02/23 14:30 3 08/02/23 14:20 6 08/02/23 11:41 08/02/23 07:46 08/01/23 22:38 Pain Intensity Right Hip: Pain Intensity: 8 Notes Mental Status: alert / awake / arousable Patient Amnestic to Procedure: Yes Nausea / Vomiting: adequately controlled Pain: adequately controlled Airway Patency, RR, SpO2: stable & adequate BP & HR: stable & adequate Hydration State: stable & adequate Neuraxial Anesthesia: was administered and sensory block is resolving Anesthetic Complications: no major complications apparent
[2023-08-02] MEDS ORDERED: bisacodyL 10 MG SUPP PR PRN (15:39)
[2023-08-02] MEDS ORDERED: MAGNESIUM HYDROXIDE SUSP 30 ML UDC PO PRN (15:39)
[2023-08-02] MEDS ORDERED: METHOCARBAMOL 750 MG TABLET PO PRN (15:39)
[2023-08-02] MEDS ORDERED: HYDROmorphone INJ 0.5 MG/0.5 ML SYR IV PRN (15:39)
[2023-08-02] MEDS ORDERED: METOCLOPRAMIDE HCL INJ 5 MG/ML 2 ML VIAL IV PRN (15:39)
[2023-08-02] MEDS ORDERED: NALOXONE HCL 0.4 MG/1 ML VIAL/CARP IV PRN (15:39)
[2023-08-02] MEDS: SODIUM CHLORIDE 0.9% 1,000 ML IV SCH (16:02)
[2023-08-02] MEDS: KETOROLAC TROMETHAMINE 15 MG/ML VIAL IV SCH ×2 (16:29→22:43)
--- NOTE | 2023-08-02 16:49 | Fluoroscopy Report ---
FL hip RT 1V CLINICAL HISTORY: RIGHT ANTERIOR HIP COMPARISON STUDY: None. FLUOROSCOPY TIME: 19 seconds FLUOROSCOPY IMAGES: 1 Ka,r: 2.1 mGy FINDINGS: There is a right total hip arthroplasty. The hardware appears intact. No fracture or disloc ation within the right hip. IMPRESSION: Fluoroscopic assistance as above. ACT 112: Negative or not required by law. Electronically signed by: Jayson Buchanan M.D. 08/02/2023 4:48 PM
--- NOTE | 2023-08-02 16:53 | XRay Report ---
XR hip 1V RT w pelvis CLINICAL HISTORY: Postoperative evaluation. COMPARISON: Right hip radiographs July 31, 2023. FINDINGS: Alignment of the total right hip arthroplasty is anatomic. There is no periprosthetic frac ture or unexpected radiopaque foreign body. There is an acetabular screw and skin mela. Postoperat elsa findings within the lumbosacral spine are partially imaged. IMPRESSION: Expected findings following total right hip arthroplasty. ACT 112: Negative or not required by law. Electronically signed by: Wilman Dawson M.D. 08/02/2023 4:51 PM
[2023-08-02] MEDS: CEROVITE ADV FORMULA TAB PO SCH (17:04)
[2023-08-02] MEDS: KETOROLAC 0.5% OP SOLN 5 ML BTL OPB SCH ×2 (17:05→19:59)
[2023-08-02] MEDS: oxyCODONE HCL IR 5 MG TAB (IMMEDIATE RELEASE) PO PRN (19:56)
[2023-08-02] MEDS: ASPIRIN 81 MG ECTAB PO SCH (19:58)
[2023-08-02] MEDS: ATORVASTATIN 20 MG TAB PO SCH (20:00)
[2023-08-02] MEDS: DOCUSATE SODIUM 100 MG CAP PO SCH (20:01)
[2023-08-02] MEDS: ceFAZolin 2000MG 2,000 MG/15 ML SYR IV SCH (20:08)
[2023-08-02] MEDS ORDERED: SENNA 8.6 MG TAB PO SCH (21:00)
[2023-08-02] MEDS ORDERED: LATANOPROST 0.005% OP SOLN 2.5 ML BTL OP SCH (21:00)
[2023-08-02] MEDS: ACETAMINOPHEN 500 MG TAB PO SCH (22:43)
[2023-08-03] MEDS: SODIUM CHLORIDE 0.9% 1,000 ML IV SCH (00:55)
[2023-08-03] MEDS: oxyCODONE HCL IR 5 MG TAB (IMMEDIATE RELEASE) PO PRN ×2 (02:42→09:05)
[2023-08-03] MEDS: KETOROLAC TROMETHAMINE 15 MG/ML VIAL IV SCH ×2 (05:07→10:50)
[2023-08-03] MEDS: ceFAZolin 2000MG 2,000 MG/15 ML SYR IV SCH (05:07)
[2023-08-03] MEDS: ACETAMINOPHEN 500 MG TAB PO SCH (06:07)
[2023-08-03] MEDS ORDERED: dexAMETHasone 4 MG TAB PO SCH (08:00)
--- NOTE | 2023-08-03 08:30 | Orthopedic Progress Note ---
Date of Service August 03, 2023 Assessment & Plan (1) Status post right hip replacement: Overall she is doing fairly well. She is not having too much pain in the right hip. She will be seen by physical therapy today for ambulation and range of motion exercises. She is on aspirin for DVT prophylaxis. She can be discharged home later today. She will follow-up with orthopedics in 2 weeks. Abiola Lubin was seen and examined at bedside this morning. Overall she is doing very well. She is not having too much pain in the right hip. She has been up and ambulating to the bathroom. She has no complaints.. Review of Systems All systems reviewed & are unremarkable except as noted in HPI & below. Physical Exam On physical examination of the right hip, the dressing is clean and dry. Her leg is out full extension. She has active dorsiflexion plantarflexion of her right ankle.. Results & Data Results & Data Laboratory Results . Diagnostic Findings Postoperative x-rays of the right hip show the prosthesis to be in anatomic alignment without any evidence of fracture complication, or loosening.. PG Care Time/CCT Total # of Minutes Spent Total Time Spent with Patient: Total time spent is greater than 50% in coordination of care (as documented) at patient's floor/unit and/or counseling patient: Coding Level of Care Code 84690 Post Operative Follow-Up Diagnoses Status post right hip replacement Z96.641
--- NOTE | 2023-08-03 08:31 | Discharge Summary ---
Date of Service August 03, 2023 Admission HPI (Per Admitting) . Amee is a 68-year-old female who presented to the emergency department today for right hip pain. She is a known patient of Dr. 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 She noted that today, she was stepping out of the shower when she felt a"popping" sensation to the right hip. She was at severe 10 out of 10 pain at that point and she feared that she may have fractured her hip. She then reported to the emergency department where an x-ray was completed which showed no acute fractures. At this time, she notes that her pain is a constant 6 out of 10 but is a 10 out of 10 with ambulation. At this point, she has a lot of difficulty with ambulation. She denies any low back pain, distal extremity pain, numbness/tingling, or paresthesias. She is not on any anticoagulation. Admission Exam (Per Admitting) . Constitutional WD/WN, vitals as above no acute distress Eyes PERRL, conjunctivae normal, anicteric sclerae Neck trachea midline, no thyromegaly Respiratory normal respiratory effort, lungs clear to auscultation Cardiovascular RRR, no murmur, no edema Vessels: normal carotid upstroke; no carotid bruit Gastrointestinal (Abdomen) normal bowel sounds, soft, nontender, no hepatosplenomegaly Skin no rashes, warm and dry Neurologic CN's II-XI intact bilaterally and moves all extremities Psychiatric A+Ox3, euthymic affect Principal Diagnosis Same as "Discharge Diagnosis" noted below under Discharge Instructions. Discharge Exam On physical examination of the right hip, the dressing is clean and dry. Her leg is out full extension. She has active dorsiflexion plantarflexion of her right ankle.. Discharge Data Consultations 07/31/23 13:19 ED Decision to Admit Stat Procedures Performed Operation Date: 08/02/23 12:00 Actual Procedures p Right Anterior Total Hip Arthroplasty(Right) - Maurisio Singh DO Ordered Studies 08/02/23 12:00 FL hip RT 1V Routine Hospital Course (1) Status post right hip replacement: On July 31, 2023 Amee came to the emergency room with severe right hip pain. X-rays showed advanced osteoarthritis of the right hip with complete collapse. She was admitted to the orthopedic service. After discussions, she elected to proceed with a right anterior total of arthroplasty. On August 02, 2023 she was taken down to the operating room and underwent a right hip replacement without complication. She had a spinal anesthetic. Postoperatively she was started on aspirin for DVT prophylaxis and transferred to the general orthopedic floors. Her hospital course was uneventful. On postop day #1, her vital signs were stable and her pain was well controlled. She was able to participate well with physical therapy doing ambulation and range of motion exe rcises. She was then discharged home. She will follow-up with orthopedics in 2 weeks. PG Care Time/CCT Total # of Minutes Spent Total Time Spent with Patient: Total time spent is greater than 50% in coordination of care (as documented) at patient's floor/unit and/or counseling patient: Discharge Plan Discharge Items Patient Disposition: Home - Home Health Services Reason For Visit: RIGHT HIP PAIN/BRENNAN Discharge Diagnosis: Right hip replacement Activity: As commented below Non-emergency contact: Surgeon Call non-emergency contact if: your wound has increased redness and your wound has increased drainage Follow-up/Referrals: Dea Resendez MD [Primary Care Provider] - Diet: Regular Addtl Attending Provider Instructions: Activity and Therapy Recommendations: * If you are using [facility] then therapy will be provided at your home until they feel you have accomplished all of your goals. * If you are using [facility] then Physical Therapy will be provided until they feel you are ready to start Outpatient Physical Therapy. * If you are not using home therapy then Outpatient Physical Therapy should start about 3-5 days from your day of surgery. Therapy will last about 6-10 weeks * You were shown a series of exercises in the hospital. Do these exercises three times each day including the exercises you were shown in physical therapy. * Get up and walk several times each day.~ For the first four weeks, try not to stand or walk for more than one hour at a time. If you do stand or walk for more than one hour, you will not hurt anything, but your leg will likely swell.~~ * As you feel comfortable, you may change from the walker or crutches to a cane and~then to independent walking. Medications: * Narcotic You will likely be sent home from the hospital with a prescription for the narcotic pain medication that worked best throughout your stay. * Aspirin Most patients will be required to take Aspirin 81mg twice a day for 6 weeks after surgery. This is obtained [id number] and a prescription is not necessary. * Cefadroxil -take the antibiotic twice a day for 10 days to help prevent infection. * Other medications may be prescribed for specific circumstances. If you have any questions, please call the office at . * Resume previous home medications unless otherwise instructed TEDs/Elastic Stockings: The white elastic stockings help limit swelling and prevent blood clots from forming in your legs. The more you wear them, the more they work. Wear them for six weeks. Dressing Care: Leave the Silverlon dressing in place for 7 days. After 7 days you may remove the dressing. If the incision is not draining then you may leave the mela open to air. If there is a little bit of drainage or if the mela are getting stuck on your clothing then cover the incision with a dry dressing. The mela will be removed at your 2 week follow-up appointment. Showering: You may shower with the Silverlon dressing in place. Do not let the shower spray hit the dressing directly. Pat the Silverlon dressing dry. If the dressing becomes wet underneath, then simply remove the dressing. Keep the incision dry until you are 7 days out from the day of surgery. After 7 days you may remove the Silverlon dressing and shower with the mela exposed. Let soapy water run over the mela and pat them dry. Do not scrub or soak the incision. Things To Watch For: * Drainage from the incision site that occurs more than one week after your surgery. * Increased redness at the incision site. * Fever above 102 degrees Fahrenheit. * Unusual chest pain or shortness of breath. * Call [facility] at with any of the above problems Follow-Up Visit: Follow-up with Dr. Singh's PA (Maurisio Hernandez) 2-3 weeks after your day of surgery. He will remove your mela and answer any questions. If you have any additional questions or concerns, Dr Singh is usually in the office at the same time and will be available An appointment was probably scheduled when you signed-up for surgery in the office. If you have any questions call Office Instructions: More detailed instructions as well as Frequently Asked Questions were provided in a folder by our office when you signed-up for surgery. Please review these instructions when you get home. If you have any further questions or concerns, please feel free to call the office at [phone] Pending Studies at Discharge: No Stand-Alone Forms: My [facility] [employer], Smoking Cessation Medications and DC Order Prescriptions: New oxycodone 5 mg Tablet 5 mg PO Q4H PRN (Reason: pain) Qty: 30 0RF cefadroxil 500 mg capsule 500 mg PO BID 10 Days Qty: 20 0RF aspirin 81 mg Tablet,Delayed Release (Dr/Ec) 81 mg PO BID 42 Days Qty: 0 0RF Continued methocarbamol 750 mg tablet 750 mg PO TID PRN (Reason: muscle spasm) Qty: 30 1RF meloxicam 15 mg tablet 15 mg PO QAM PRN (Reason: Pain) Qty: 90 3RF ketorolac 0.5 % drops 1 drp OPB QID prednisolone acetate 1 % drops,suspension 1 drp OPR DAILY cholecalciferol (vitamin D3) [Vitamin D3] 125 mcg (5,000 unit) Tablet 125 mcg PO DAILY paroxetine HCl 10 mg tablet 10 mg PO QAM atorvastatin 20 mg tablet 20 mg PO HS azelastine 137 mcg (0.1 %) aerosol,spray 2 spray intranasal DAILY ipratropium bromide 21 mcg (0.03 %) spray,non-aerosol 2 spray intranasal DAILY Rx Instructions: administer into each nostril Centrum Silver Women 8 mg iron-400 mcg-50 mcg Tablet 1 tab PO QAM acidophilus-pectin, citrus 100 million cell-10 mg Capsule 1 cap PO HS PreserVision AREDS-2 250-90-40-1 mg Capsule 1 tab PO BID calcium 26-vit D3-magnesium 15 167 mg calcium- 1.67 mcg-83 mg Capsule 1 cap PO HS omeprazole 20 mg Capsule,Delayed Release(Dr/Ec) 20 mg PO DAILY PRN (Reason: Acid Reflux) latanoprost 0.005 % Drops 1 drp OPHTHALMIC (EYE) HS Lumigan 0.01 % Drops 1 drp OPHTHALMIC (EYE) DAILY Discharge Orders: Discharge Order (Routine); Ordered 08/03/23 Ordered By: Maurisio Singh Admission Data Admit Date/Time: 07/31/23 14:21 Attending Provider: Maurisio Singh Admit Provider: Maurisio Singh Primary Care Provider: Dea Resendez Other Providers: Maurisio Singh
[2023-08-03] MEDS: ASPIRIN 81 MG ECTAB PO SCH (08:39)
[2023-08-03] MEDS: DOCUSATE SODIUM 100 MG CAP PO SCH (08:40)
[2023-08-03] MEDS: KETOROLAC 0.5% OP SOLN 5 ML BTL OPB SCH (08:40)
[2023-08-03] MEDS: CEROVITE ADV FORMULA TAB PO SCH (08:41)
[2023-08-03] MEDS: PARoxetine HCL 10 MG TAB PO SCH (08:41)
[2023-08-03] MEDS ORDERED: prednisoLONE acetate 1% OP SUSP 5 ML BTL OPR SCH (09:00)
[2023-08-03] MEDS ORDERED: MULTIVITAMIN TAB PO SCH (09:00)
[2023-08-03] MEDS ORDERED: BIMATOPROST 0.01% OP SOLN 2.5 ML BTL OP SCH (09:00)
[2023-08-03] MEDS ORDERED: AZELASTINE HCL 0.1% NASAL 200 SPRAYS/27,400 MCG BTL SCH (09:00)
== END 2023-08-03 13:43 | disposition home health service (06) | DRG 470 ==
LOC: ED 09:27 → 3E 14:21